=== PATIENT | female | born 1995 | race Caucasian/White ===

== ENCOUNTER 2022-05-10 06:30 | Inpatient (IN) ==
[2022-05-10] MEDS ORDERED: PITOCIN ONE (06:44)
[2022-05-10] MEDS ORDERED: D5 1/2 NS 1,000 ML 1,000 ML IV ONE (06:44)
[2022-05-10] MEDS ORDERED: BETADINE SOLN ONE ×2 (06:44→19:45)
[2022-05-10] MEDS ORDERED: D5 LR + PITOCIN 10 UNITS/L 10 UNITS/1,000 ML BAG IV ONE (06:45)
[2022-05-10] MEDS ORDERED: D5 1/2 NS 1,000 mL + PITOCIN 20 UNITS/L IV 20 UNITS/1,000 ML BAG IV ONE (06:45)
--- NOTE | 2022-05-10 07:26 | DR.OB ---
OB Quick Note - Assessment/Plan Assessment/Plan: L&D 05/10/22 at 7:15am S-No complaint. O-Afebrile,VSS MXT=129 with good LTV, +accel, no decel. CTX=none CVX=2cm/75%/-1/VTX AROM with clear fluid. IUPC and FSE placed. A-IUP at 38 6/7 weeks for induction P-Begin pitocin induction Anticipate
[2022-05-10] MEDS ORDERED: MORPHINE SULFATE INJ 2 MG INJ IVP PRN (07:47)
[2022-05-10] MEDS ORDERED: NUBAIN INJ 20 MG AMP IVP PRN (07:47)
[2022-05-10] MEDS ORDERED: REGLAN INJ 10 MG VIAL IVP PRN (07:47)
[2022-05-10] MEDS ORDERED: D5 1/2 NS 1,000 ML 1,000 ML IV SCH (07:47)
[2022-05-10] MEDS ORDERED: D5 LR + PITOCIN 10 UNITS/L 10 UNITS/1,000 ML BAG IV PRN (07:47)
[2022-05-10] MEDS ORDERED: PHENERGAN INJ 25 MG IM PRN ×2 (07:47→16:29)
[2022-05-10] MEDS ORDERED: PITOCIN IVP ONE (07:47)
[2022-05-10] MEDS ORDERED: STADOL INJ IVP PRN (07:48)
[2022-05-10] MEDS ORDERED: LR 1,000 ML IV 1,000 ML IV ONE (10:52)
[2022-05-10] MEDS ORDERED: NAROPIN EPIDURAL 0.2% 100 ML ONE (10:58)
[2022-05-10] MEDS ORDERED: FENTANYL VIAL INJ 100 mcg ONE (10:58)
--- NOTE | 2022-05-10 12:07 | DR.OB ---
OB Quick Note - Assessment/Plan Assessment/Plan: L&D 05/10/22 at 11:50am Pitocin=10mu/min. S-No complaint. O-Afebrile,VSS EEI=493 with good LTV, +accel, no decel. CTX=1 1 1/2 to 3 min., about 35-55mmHg CVX=3cm/75%/0 A-IUP at 38 6/7 weeks for induction P-Cont. pitocin induction Anticipate
--- NOTE | 2022-05-10 16:35 | DR.OB ---
OB Quick Note - Assessment/Plan Assessment/Plan: Delivery Note [employer] 05/10/22 at 4:11pm Patient complete and pushing. Head delivered over intact perineum. Nuchal cord x 1 reduced. Nose and mouth bulb suctioned. Body delivered over intact perineum. Cord clamped x 2 and cut. handed to attendant. Cord sent for gases. Placenta delivered spontaneously / intact / 3 vessel cord. No CVX tears. A small midline second degree tear noted and repaired with 0-vicryl in usual fashion. Viable female infant delivered by , VTX/OA, wt=6'9" and 9/10, stable to NBN. Mother stable to RR. [id number].
[2022-05-10] MEDS: D5 1/2 NS 1,000 ML 1,000 ML with PITOCIN 20 UNITS IV SCH ×2 (17:00)
[2022-05-10] MEDS ORDERED: MILK OF MAGNESIA PO PRN (17:19)
[2022-05-10] MEDS ORDERED: ADACEL or BOOSTRIX TDaP VACCINE IM ONE (17:19)
[2022-05-10] MEDS ORDERED: AMBIEN PO PRN (17:19)
[2022-05-10] MEDS ORDERED: DERMOPLAST PAIN RELIEF SPRAY TOP PRN (17:19)
[2022-05-10] MEDS: MOTRIN TAB 800 MG PO PRN (21:24)
[2022-05-10] MEDS ORDERED: MYLICON TAB 80 MG CHEW PO PRN (22:47)
[2022-05-11] MEDS: D5 1/2 NS 1,000 ML 1,000 ML with PITOCIN 20 UNITS IV SCH ×2 (04:13)
[2022-05-11] MEDS ORDERED: ADACEL or BOOSTRIX TDaP VACCINE IM ONE (04:55)
[2022-05-11 05:26] LABS: HEMATOCRIT 28.5 % (36.0-47.0); HEMOGLOBIN 9.7 g/dL (12.0-16.0)
[2022-05-11] MEDS ORDERED: PRENATAL PLUS PO SCH (09:00)
[2022-05-11] MEDS: MOTRIN TAB 800 MG PO PRN (13:04)
[2022-05-11] MEDS ORDERED: BETADINE SOLN ONE (16:18)
[2022-05-11 17:51] VITALS: BP 120/70
== END 2022-05-11 18:35 | disposition home or self-care (01) | DRG 819 ==
LOC: LD 06:38 → MED/SURG 17:58
PROVIDERS: ADMIT Specialist; ATTEND Specialist
DX: O26.893 Other specified pregnancy related conditions, third trimester; Z01.811 Encounter for preprocedural respiratory examination; Z01.810 Encounter for preprocedural cardiovascular examination; Z3A.38 38 weeks gestation of pregnancy; O70.1 Second degree perineal laceration during delivery; Z01.812 Encounter for preprocedural laboratory examination; Z01.818 Encounter for other preprocedural examination